=== PATIENT | female | born 1990 | race Caucasian/White ===

== ENCOUNTER → 2017-02-04 | Outpatient (CLI) | payer OTHER | END | disposition home or self-care (01) | LOC: C.PAPS 15:54 | PROVIDERS: ATTEND Obstetrics & Gynecology | DX: Z12.4 Encounter for screening for malignant neoplasm of cervix (principal) ==

== ENCOUNTER → 2017-02-04 | Outpatient (CLI) | payer OTHER | END | disposition home or self-care (01) | LOC: C.LAB1850 12:50 | PROVIDERS: ATTEND Obstetrics & Gynecology | DX: Z31.69 Encounter for other general counseling and advice on procreation (principal) ==

== ENCOUNTER 2022-11-07 12:54 | Inpatient (IN) ==
[2022-11-07] MEDS ORDERED: LACTATED RINGER'S 1,000 ML IV PRN (13:39)
[2022-11-07] MEDS ORDERED: LIDOCAINE 1% LOCAL 20 ML VIAL INFIL PRN (13:39)
[2022-11-07] MEDS ORDERED: OXYTOCIN 30 UNITS/500 ML BAG IV PRN ×2 (13:39→23:11)
[2022-11-07] MEDS ORDERED: Patient's ALLERGY Info needs ENTERED SCH (13:45)
--- NOTE | 2022-11-07 14:10 | History & Physical Report ---
Date of Service November 07, 2022 Assessment & Plan (1) premature rupture of membranes (PPROM) with onset of labor after 24 hours of rupture in second trimester, antepartum: Plan: 32-year-old G1, P0 at 21 weeks of gestation, PPROM since October 28, expectant management was opted by the patient, Now with labor with foot and leg in the vagina, Vital signs stable afebrile, heart rate present and within normal limits for this gestational age, No Regular uterine contractions, with cervical dilatation 1 to 2 cm Patient desires to be delivered, Plan to admit, monitor, labs, and then decide for the final plan. (2) labor in second trimester: Admission and Anticipated Discharge Date Admission Date: November 07, 2022 History of Present Illness Chief Complaint: PPROM, Cramping Primary Care Provider: NO PCP Patient is a 32-year-old Boy, P0 at 21 weeks of gestation who was diagnosed with PPROM on October 28, 2022. She has seen M and confirmed anhydramnios by ultrasound. Decision was made for expectant management and weekly heart rate checks and call with any signs of labor or chorioamnionitis. They scheduled her for admission for steroid series at 22 weeks and 5 days. She has been leaking small amount of clear fluid for the last 10 days but started to see pinkish-brownish tinge since this morning. She has been also feeling crampy with uterine tightening since 9 AM this morning. They got more intense around 11 and she called office and recommended to come here for evaluation. Since she came here about half an hour ago her pain and cramping stopped. She denies fever, chills, nausea vomiting, abdominal pain. She has been feeling good movements. 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 Beliefs That Will Affect Care: None marital status: Single Current Living Situation: Significant Other Other Information That Helps Us Care for You: No Feels Safe at Home: Yes Safety Concerns: Feels Safe At This Time Assistive Devices: None Review of Systems as per Subjective / HPI Physical Exam Constitutional: WD/WN, vitals as above well developed, well nourished and comfortable (Not in distress) Gastrointestinal (Abdomen): normal bowel sounds, soft, nontender, no hepatosplenomegaly (Gravid) Genitourinary: normal external appearance Manual OB Exam: + cervical dilation 1 cm and + cervical effacement 20% OB Exam Monitor Tracing: + external uterine monitor used and + category I ( heart rate at 150s, appropriate for gestational age) Sleep speculum exam showed small amount of clear fluid leaking from cervix, cord and 1 foot with leg seen in the vagina. Results & Data Vital Signs (Past 12 Hours) Vital Signs Temp Pulse Resp BP 11/07/22 13:01 36.8 C 81 20 108/56 L
[2022-11-07 14:29] LABS: Hematocrit (blood only) 33.1 % (37.0-47.0); Hemoglobin 11.6 g/dl (12.0-16.0); Mean Corpuscular Hemoglobin 29.8 pg (25.0-34.0); Mean Corpuscular Volume 85.1 fL (80.0-100.0); Platelet Count 258 K/uL (130-400); RDW Standard Deviation 40.1 fL (36.4-46.3); Red Blood Count 3.89 M/uL (4.20-5.40); White Blood Count 14.88 K/ul (4.8-10.8)
[2022-11-07 14:44] LABS: Albumin Globulin Ratio 1.3 (0.9-2); Albumin Level 3.8 gm/dl (3.4-5.0); BUN Creatinine Ratio 11.4 (10-20); Bilirubin,Total 0.4 mg/dl (0.2-1.0); Calcium 9.4 mg/dl (8.6-10.3); Creatinine Clr Calc Pharmacy 95.9 ml/min; Est GFR (African American) 132.9 ml/min; Est GFR (Non-African American) 114.6 ml/min; Globulin 2.9 gm/dl (2.5-4.0); Potassium 3.5 mmol/L (3.5-5.1); Total Protein 6.7 gm/dl (6.0-8.3)
--- NOTE | 2022-11-07 15:46 | Obstetrical Progress Note ---
Date of Service November 07, 2022 Assessment & Plan Admission and Anticipated Discharge Date Admission Date: November 07, 2022 Subjective Patient feels well, no change Labs reviewed I discussed her with Dr Jordan from [facility] [place], [facility] who saw this patient on /3 Options either termination/ IOL with Cytotec or expectant management No s/s of chorioamnionitis now After long discussion patient decided to for expectant management for now and then reevaluate tomorrow am for possible Cytotec. Plan to observe, monitor, start IV AB and labs in am All questions were answered. Results & Data Vital Signs (Past 12 Hours) Vital Signs Temp Pulse Resp BP 11/07/22 14:38 77 11/07/22 14:38 97/60 L 11/07/22 14:37 20 11/07/22 14:37 37.0 C 20 11/07/22 13:01 36.8 C 81 20 108/56 L
[2022-11-07] MEDS: ceFAZolin 2000MG 2,000 MG/15 ML SYR IV SCH ×2 (16:32→22:25)
[2022-11-07] MEDS ORDERED: ACETAMINOPHEN 1,000 MG/100 ML VIAL IV PRN (18:53)
[2022-11-07] MEDS ORDERED: BUTORPHANOL TARTRATE 1 MG/ML VIAL IV PRN (18:53)
--- NOTE | 2022-11-07 18:56 | Obstetrical Progress Note ---
Date of Service November 07, 2022 Assessment & Plan Admission and Anticipated Discharge Date Admission Date: November 07, 2022 Subjective Patient is reevaluated Started to pain crampy again, every 10 min, more intense then before No more leaking or bleeding No vaginal pressure Bed side US: fetus in utero, footling breech, same as before, FHR 150's, placenta fundal VSS Afebrile Continue to monitor closely IV Tylenol and Stadol as needed. Results & Data Vital Signs (Past 12 Hours) Vital Signs Temp Pulse Resp BP 11/07/22 16:45 20 11/07/22 16:45 36.9 C 11/07/22 14:38 77 11/07/22 14:38 97/60 L 11/07/22 14:37 11/07/22 14:37 37.0 C 11/07/22 13:01 36.8 C 81 20 108/56 L
[2022-11-07] MEDS ORDERED: MAGNESIUM HYDROXIDE SUSP 30 ML UDC PO PRN (18:58)
[2022-11-07] MEDS: DOCUSATE SODIUM 100 MG CAP PO SCH ×2 (19:27→23:26)
[2022-11-07] MEDS ORDERED: miSOPROStoL 200 MCG TAB PR ONE (23:11)
[2022-11-07] MEDS ORDERED: DIPHTHERIA/TETANUS/PERTUSSIS 0.5mL SYR/VIAL (Age 7+yrs) IM ONE (23:11)
[2022-11-07] MEDS ORDERED: ACETAMINOPHEN 325 MG TAB PO PRN (23:11)
[2022-11-07] MEDS ORDERED: MEASLES, MUMPS & RUBELLA VIRUS VIAL SQ ONE (23:11)
[2022-11-07] MEDS ORDERED: bisacodyL 10 MG SUPP PR PRN (23:11)
[2022-11-07] MEDS ORDERED: HYDROCORTISONE ACETATE 25 MG SUPP PR PRN (23:11)
[2022-11-07] MEDS ORDERED: BENZOCAINE 20% AER SPR 82.5 GM CAN EXT PRN (23:11)
--- NOTE | 2022-11-07 23:19 | Delivery Summary ---
Vaginal Delivery Summary Date of Service November 07, 2022 Vaginal Delivery Summary Patient was feeling crampy and felt pressure. foot and cord was visible through the introitus and coming out. There was no pulsation on the cord. Patient had urge to push. She pushed through few contractions and delivered the fetus in footling breech presentation completely without difficulty. Patient wanted to see the baby. Baby was already passed with no heart rate. The cord was clamped times and cut. Baby was showed to mom and mom and then taking out to the crib by her request. Then the vagina and perineum were checked for lacerations and they were intact. Placenta was still attached and patient had minimal bleeding. 600 mcg of Cytotec tablets were placed in the rectum to help to aid for placenta. About half an hour later patient felt crampy and more pressure and wanted to push. The placenta was in the vagina with 1 push it came out completely and intact without difficulty. Then the vagina checked to have small clots and cervix was contracted back to about 1 cm. Bedside ultrasound was done by myself and endometrium looked empty with no signs of retained products. Placenta was examined in a sterile cup and cultures were taken from maternal and sides. It appeared to be intact with cervical of membranes suggesting complete delivery. It was sent to the pathology. Patient declined any type of genetic or cytogenetic testing neither on baby nor the placenta. EBL was 100 mL. Mom is stable with stable vital signs and firm uterus. IV oxytocin infusion was started she was given 1 more dose of cefazolin during during the delivery.
[2022-11-07] MEDS: oxyCODONE/ACETAMINOPHEN 5mg/325mg TAB PO PRN (23:37)
[2022-11-07] MEDS: IBUPROFEN 600 MG TAB PO PRN (23:37)
[2022-11-08] MEDS ORDERED: CYCLOBENZAPRINE HCL 10 MG TAB PO PRN (00:05)
[2022-11-08] MEDS ORDERED: miSOPROStoL 200 MCG TAB ONE (03:21)
[2022-11-08] MEDS: oxyCODONE/ACETAMINOPHEN 5mg/325mg TAB PO PRN (03:34)
[2022-11-08] MEDS: IBUPROFEN 600 MG TAB PO PRN (03:35)
[2022-11-08] MEDS: ceFAZolin 2000MG 2,000 MG/15 ML SYR IV SCH (06:07)
[2022-11-08 06:14] LABS: Basophils # (auto) 0.04 K/uL (0-0.2); Basophils % (auto) 0.3 %; Eosinophils # (auto) 0.17 K/uL (0-0.50); Eosinophils % (auto) 1.1 %; Immature Granulocytes # (auto) 0.07 K/uL (0.01-0.20); Immature Granulocytes % (auto) 0.4 %; Lymphocytes # (auto) 2.12 K/uL (1.2-3.4); Lymphocytes % (auto) 13.3 %; Mean Corpuscular Hemoglobin 30.6 pg (25.0-34.0); Mean Corpuscular Hgb Conc 35.5 g/dL (32.0-36.0); Mean Corpuscular Volume 86.1 fL (80.0-100.0); Mean Platelet Volume 10.2 fL (9.4-12.4); Monocytes # (auto) 0.67 K/uL (0.11-0.59); Monocytes % (auto) 4.2 %; Neutrophils % (auto) 80.7 %; Platelet Count 245 K/uL (130-400); RDW Coefficient of Variation 12.7 % (11.5-14.5); RDW Standard Deviation 40.2 fL (36.4-46.3); White Blood Count 15.97 K/ul (4.8-10.8)
[2022-11-08] MEDS ORDERED: PRENATAL VITAMIN 1 TAB PO SCH (08:00)
[2022-11-08] MEDS ORDERED: DOCUSATE SODIUM 100 MG CAP PO SCH (08:00)
[2022-11-08] MEDS ORDERED: FERROUS SULFATE 325 MG TAB PO SCH (08:00)
--- NOTE | 2022-11-08 09:33 | Obstetrical Progress Note ---
Date of Service November 08, 2022 Assessment & Plan (1) demise: pt is s/p demise deliver 'doing well' no complaints pt wishes to be discharged home Results & Data Vital Signs (Past 12 Hours) Vital Signs Temp Pulse Resp BP 11/08/22 09:01 36.5 C 63 18 85/57 L 11/08/22 03:40 36.9 C 64 102/53 L 11/08/22 01:10 37.1 C 66 20 90/58 L 11/08/22 00:08 64 91/58 L 11/07/22 23:53 64 18 91/58 L 11/07/22 23:23 64 18 11/07/22 23:08 37.1 C 11/07/22 23:08 36.9 C 64 18 91/58 L 11/08/22 07:24 63 85/57 L 11/08/22 07:23 70 85/58 L 11/08/22 03:33 64 102/53 L 11/08/22 01:10 66 90/58 L 11/08/22 01:09 61 89/69 L 11/08/22 00:54 72 96/64 L 11/08/22 00:39 64 91/58 L 11/08/22 00:24 67 93/62 L 11/08/22 00:09 59 L 91/61 L 11/07/22 23:54 69 11/07/22 23:54 97/60 L 11/07/22 23:39 79 11/07/22 23:39 95/63 L 11/07/22 23:25 76 11/07/22 23:25 101/61 11/07/22 23:08 68 11/07/22 23:08 102/59 L 11/07/22 22:19 86 11/07/22 22:19 103/64
[2022-11-08] MEDS ORDERED: bisacodyL 5 MG TABEC PO SCH (20:00)
== END 2022-11-08 09:45 | disposition home or self-care (01) | DRG 807 ==
LOC: OPB 12:54 → 4S1 12:57